=== PATIENT | male | born 1945 | race Caucasian/White ===

== ENCOUNTER 2016-10-14 19:24 | Emergency (ER) | payer OTHER ==
[~2016-10-14] VITALS: Ht 175.3 cm; Wt 83.1 kg
[2016-10-14 19:25] VITALS: TEMP 36.9; Ht 175.3 cm; Wt 83.1 kg
--- NOTE | 2016-10-14 20:26 | EMERGENCY ROOM VISIT NOTE ---
ED Visit Note First contact with patient: 20:06 The patient was initially to be seen by Damari Rodrigues PA-C but refused to see a PA and requested M.D. Please see the following note.
[2016-10-14] MEDS ORDERED: CEFTRIAXONE SOD INJ 1 GM ADDVIAL IV STA (21:14)
[2016-10-14 21:57] LABS: BASO % 0.4 %; BASO ABS # 0.03 K/uL (0-0.2); COMPLETE YES; EOS % 2.1 %; HEMATOCRIT 41.3 % (42-52); IG% 0.1 %; LYMPH % 23.9 %; LYMPH ABS # 1.79 K/uL (1.2-3.4); MEAN CELL VOLUME 91.6 fL (80-100); MEAN CORPUSCULAR HEMOGLOBIN 32.6 pg (25-34); MEAN CORPUSCULAR HGB CONC 35.6 g/dl (32-36); MEAN PLATELET VOLUME 10.4 fL (7.4-10.4); MONO % 11.8 %; NEUT % 61.7 %; PLATELET COUNT 193 K/uL (130-400); RED BLOOD COUNT 4.51 M/uL (4.7-6.1); WHITE BLOOD COUNT 7.48 K/uL (4.8-10.8)
[2016-10-14 22:16] LABS: BUN/CREATININE RATIO 15.8 (10-20); CALCIUM 9.1 mg/dl (8.5-10.1); CREATININE 1.1 mg/dl (0.60-1.40); POTASSIUM 3.8 mmol/L (3.5-5.1)
[2016-10-15] MEDS ORDERED: CEFD300C2 PO (00:45)
[2016-10-15 01:11] VITALS: BP 191/106; PULSE 78; O2SAT 99
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
--- NOTE | 2016-10-15 06:36 | DIAGNOSTIC IMAGING REPORT ---
BILATERAL LOWER EXTREMITY VENOUS DOPPLER HISTORY: Acute right lower extremity swelling. COMPARISON STUDY: None. FINDINGS: There is normal compressibility, flow, and augmentation within the right lower extremity deep venous system. There is limited evaluation of the calf veins secondary to soft tissue swelling. Incidental note is made of a Whitlock's cyst, 2.6 x 5.6 x 1.7 cm which is mildly complex. IMPRESSION: 1. No sonographic evidence of deep venous thrombosis. 2. Mildly complex cystic structure of the right popliteal fossa is seen measuring up to 5.6 cm suggesting Whitlock's cyst. Electronically signed by: Gerhard Osman M.D. 10/15/2016 6:34 AM Dictated Date/Time: 10/15/2016 6:32 AM
[2016-10-20] MEDS ORDERED: DXY100 PO (11:53)
== END 2016-10-15 01:13 | disposition home or self-care (01) ==
LOC: C.EDB 19:26 → C.EDC 10-15 01:13
DX: L03.115 Cellulitis of right lower limb (principal); M71.21 Synovial cyst of popliteal space [Baker], right knee; Z89.612 Acquired absence of left leg above knee; Z87.891 Personal history of nicotine dependence

== ENCOUNTER 2016-10-15 18:56 | Inpatient (IN) | payer OTHER ==
[~2016-10-15] VITALS: Ht 175.3 cm; Wt 83.1 kg
[~2016-10-15 18:56] MED LIST: CEFD300C2 PO
[2016-10-15] MEDS ORDERED: SODIUM CHLORIDE 0.9% 1000ML 1,000 ML IV STA (19:31)
[2016-10-15 20:14] LABS: BASO % 0.6 %; BASO ABS # 0.04 K/uL (0-0.2); COMPLETE YES; EOS % 2.4 %; HEMATOCRIT 43.9 % (42-52); IG% 0.3 %; LYMPH % 23.4 %; LYMPH ABS # 1.68 K/uL (1.2-3.4); MEAN CORPUSCULAR HEMOGLOBIN 32.3 pg (25-34); MEAN CORPUSCULAR HGB CONC 35.1 g/dl (32-36); MEAN PLATELET VOLUME 10.6 fL (7.4-10.4); MONO % 11.6 %; NEUT % 61.7 %; PLATELET COUNT 188 K/uL (130-400); RED BLOOD COUNT 4.77 M/uL (4.7-6.1); WHITE BLOOD COUNT 7.18 K/uL (4.8-10.8)
[2016-10-15] MEDS ORDERED: CEFTRIAXONE SOD INJ 1 GM ADDVIAL IV STA (20:28)
[2016-10-15 20:36] LABS: BUN/CREATININE RATIO 18.4 (10-20); CALCIUM 9.2 mg/dl (8.5-10.1); CREATININE 0.8 mg/dl (0.60-1.40); POTASSIUM 3.7 mmol/L (3.5-5.1)
[2016-10-15] MEDS ORDERED: DOXYCYCLINE IV 100 MG in DEXTROSE 5% 100ML 100 ML IV STA (21:15)
[2016-10-15 21:35] LABS: MAGNESIUM 2.2 mg/dl (1.8-2.4)
--- NOTE | 2016-10-15 21:48 | DIAGNOSTIC IMAGING REPORT ---
ULTRASOUND RIGHT VENOUS DOPP LOWER EXT UNILAT CLINICAL HISTORY: Worsening right leg edema COMPARISON STUDY: A 3987 FINDINGS: Real-time and color flow Doppler imaging were performed. Flow was seen within the femoral, popliteal and calf veins with no intraluminal thrombus demonstrated. The saphenous vein is patent. There is a persistent complex right popliteal cyst measuring 28 x 59 x 15 mm. IMPRESSION: 1. No evidence of right lower extremity DVT 2. Persistent right popliteal cyst Electronically signed by: Rishi Hughes M.D. 10/15/2016 9:47 PM Dictated Date/Time: 10/15/2016 9:46 PM
[2016-10-15] MEDS ORDERED: LORAZEPAM 0.5 MG TAB PO PRN (22:00)
[2016-10-15] MEDS ORDERED: TRAMADOL HCL 50 MG TAB PO PRN (22:00)
[2016-10-15] MEDS ORDERED: LORAZEPAM 2 MG/ML 1 ML VIAL IV PRN (22:00)
[2016-10-15] MEDS ORDERED: IBUPROFEN 200 MG TAB PO PRN (22:00)
[2016-10-15] MEDS ORDERED: ONDANSETRON INJ 2 MG/ML 2 ML VIAL IV PRN (22:00)
[2016-10-15] MEDS ORDERED: ACETAMINOPHEN 325 MG TAB PO PRN (22:00)
[2016-10-15] MEDS ORDERED: MoRPHine SULFATE 4 MG/ML 1 ML CARP\\VIAL IV PRN (22:00)
[2016-10-15] MEDS ORDERED: KETOROLAC TROMETHAMINE 15 MG/ML VIAL IV. PRN (22:00)
--- NOTE | 2016-10-15 22:03 | EMERGENCY ROOM VISIT NOTE ---
History First contact with patient: 19:09 Chief Complaint: WOUND RECHECK Stated Complaint: RECHECK FROM ER VISIT 10/14/16 Nursing Triage Summary: Patient was seen in ED last night for right leg swelling and redness, marker line placed on reddened area, redness has spread beyond marker line. Patient notes that he believes the swelling is worse. History of Present Illness The patient is a 71 year old male who presents to the Emergency Room via private vehicle accompanied by daughter with complaints of "recheck ankle. The patient states that he was seen here yesterday for cellulitis of his right lower leg. He states that he had a dose of Rocephin at the time, and was sent home with Omnicef. He has had one dose. He notes that the redness has worsened. He denies any diabetes, immunocompromise a conditions, and denies a tetanus shot. He denies any fevers or chills. Review of Systems A complete 10-point Review of Systems was discussed with the patient, with pertinent positives and negatives listed in the History of Present Illness. All remaining Review of Systems questions can be considered negative unless otherwise specified. Past Medical/Surgical History Surgical Problems: (1) Hx of AKA (above knee amputation) Family History Patient reports no known family medical history. Social History Smoking Status: Never Smoker Occupation Status: retired Current/Historical Medications Scheduled Cefdinir (Omnicef), 300 MG PO Q12H Physical Exam Vital Signs Date Time Temp Pulse Resp B/P (MAP) Pulse Ox O2 Delivery O2 Flow Rate FiO2 10/15/16 20:26 76 17 95 10/15/16 20:13 82 10/15/16 20:06 98 Room Air 10/15/16 20:04 159/84 10/15/16 19:00 36.8 89 16 178/83 94 Room Air Physical Exam VITAL SIGNS - Vital signs and nursing notes were reviewed. Afebrile, hypertensive 178/83, nontoxic tachycardic and is saturating on room air 94%. GENERAL -71-year-old male appearing his stated age who is in no acute distress. Communicates well with provider and answers questions appropriately. SKIN - Without rashes. HEAD - NC/AT. EYES - Sclera anicteric. EARS - No deformities of external structures noted on gross examination bilaterally. NOSE - Midline and without cyanosis. No epistaxis or purulent drainage noted. Septum midline without deviation or septal hematoma noted. MOUTH/OROPHARYNX - Without perioral cyanosis. NECK - Neck with FROM. LUNGS - Chest wall symmetric without accessory muscle use, intercostals retractions, or central cyanosis. Normal vesicular breath sounds CTA B/L. No wheezes, rales, or rhonchi appreciated. CARDIAC - RRR with S1/S2. No murmur, rubs, or gallops appreciated. EXTREMITIES - No clubbing or peripheral cyanosis. No pretibial edema present. Right lower extremity with erythema from the right knee inferiorly, significantly progressed from yesterday. +5/5 strength noted in UE/LE bilaterally. Medical Decision & Procedures ER Provider Diagnostic Interpretation: ULTRASOUND RIGHT VENOUS DOPP LOWER EXT UNILAT CLINICAL HISTORY: Worsening right leg edema COMPARISON STUDY: A 2816 FINDINGS: Real-time and color flow Doppler imaging were performed. Flow was seen within the femoral, popliteal and calf veins with no intraluminal thrombus demonstrated. The saphenous vein is patent. There is a persistent complex right popliteal cyst measuring 28 x 59 x 15 mm. IMPRESSION: 1. No evidence of right lower extremity DVT 2. Persistent right popliteal cyst Electronically signed by: Rishi Hughes M.D. 10/15/2016 9:47 PM Dictated Date/Time: 10/15/2016 9:46 PM Laboratory Results 10/15/16 20:00 Red Blood Count 4.77, Mean Corpuscular Volume 92.0, Mean Corpuscular Hemoglobin 32.3, Mean Corpuscular Hemoglobin Concent 35.1, Mean Platelet Volume 10.6, Neutrophils (%) (Auto) 61.7, Lymphocytes (%) (Auto) 23.4, Monocytes (%) (Auto) 11.6, Eosinophils (%) (Auto) 2.4, Basophils (%) (Auto) 0.6, Neutrophils # (Auto ) 4.44, Lymphocytes # (Auto) 1.68, Monocytes # (Auto) 0.83, Eosinophils # (Auto ) 0.17, Basophils # (Auto) 0.04 10/15/16 20:00 Test 10/15/16 20:00 White Blood Count 7.18 K/uL (4.8-10.8) Red Blood Count 4.77 M/uL (4.7-6.1) Hemoglobin 15.4 g/dL (14.0-18.0) Hematocrit 43.9 % (42-52) Mean Corpuscular Volume 92.0 fL (80-100) Mean Corpuscular Hemoglobin 32.3 pg (25-34) Mean Corpuscular Hemoglobin Concent 35.1 g/dl (32-36) Platelet Count 188 K/uL (130-400) Mean Platelet Volume 10.6 fL (7.4-10.4) Neutrophils (%) (Auto) 61.7 % Lymphocytes (%) (Auto) 23.4 % Monocytes (%) (Auto) 11.6 % Eosinophils (%) (Auto) 2.4 % Basophils (%) (Auto) 0.6 % Neutrophils # (Auto) 4.44 K/uL (1.4-6.5) Lymphocytes # (Auto) 1.68 K/uL (1.2-3.4) Monocytes # (Auto) 0.83 K/uL (0.11-0.59) Eosinophils # (Auto) 0.17 K/uL (0-0.5) Basophils # (Auto) 0.04 K/uL (0-0.2) RDW Standard Deviation 45.9 fL (36.4-46.3) RDW Coefficient of Variation 13.7 % (11.5-14.5) Immature Granulocyte % (Auto) 0.3 % Immature Granulocyte # (Auto) 0.02 K/uL (0.00-0.02) Anion Gap 4.0 mmol/L (3-11) Est Creatinine Clear Calc Drug Dose 82.3 ml/min Estimated GFR () 102.7 Estimated GFR (Non- 88.6 BUN/Creatinine Ratio 18.4 (10-20) Calcium Level 9.2 mg/dl (8.5-10.1) Magnesium Level 2.2 mg/dl (1.8-2.4) Total Bilirubin 1.2 mg/dl (0.2-1) Direct Bilirubin 0.3 mg/dl (0-0.2) Aspartate Amino Transf (AST/SGOT) 17 U/L (15-37) Alanine Aminotransferase (ALT/SGPT) 21 U/L (12-78) Alkaline Phosphatase 60 U/L (45-117) Total Protein 7.7 gm/dl (6.4-8.2) Albumin 3.8 gm/dl (3.4-5.0) Medications Administered Medications (Trade) Dose Ordered Sig/Wil Route Start Time Stop Time Status Last Admin Dose Admin Sodium Chloride 1,000 ml @ 999 mls/hr Q1H1M STAT IV 10/15/16 19:31 10/15/16 20:31 DC 10/15/16 19:31 999 MLS/HR Ceftriaxone Sodium (Rocephin Inj) 1 gm NOW STAT IV 10/15/16 20:28 10/15/16 20:29 DC 10/15/16 20:58 1 GM Medical Decision Patient was seen and evaluated as above. After obtaining a thorough history and physical examination IV access is initiated, and the above workup was performed. The patient presents to us today with worsening cellulitis. Due to the rapid correction, I do believe that inpatient management is warranted. CBC reveals no leukocytosis or anemia. CMP reveals bilirubin high at 1.2, creatinine appropriate at 0.8. DVT study negative. 1 g of Rocephin was ordered. 1 L of normal saline was ordered. Case was discussed with the attending physician, who also personally evaluated the patient, as well as the hospitalist. Please refer to further documentation regarding his stay. It is important to note that the patient declined tetanus immunization. In evaluation and treatment this patient the following differential diagnoses were entertained: Cellulitis, sepsis, among others. Impression Primary Impression: Cellulitis Departure Information Dispostion Other Condition FAIR Referrals Curtis Chadwick M.D. (PCP) Patient Instructions My [facility]
--- NOTE | 2016-10-15 22:36 | DIAGNOSTIC IMAGING REPORT ---
RIGHT TIBIA/FIBULA 2 VIEWS ROUTINE CLINICAL HISTORY: Right leg pain COMPARISON: None. DISCUSSION: No acute fractures are visualized. Degenerative changes are present within the knee. There is chondrocalcinosis. There is mild diffuse soft tissue swelling. IMPRESSION: 1. No acute fractures 2. Degenerative changes involving the knee with chondrocalcinosis Electronically signed by: Rishi Hughes M.D. 10/15/2016 10:35 PM Dictated Date/Time: 10/15/2016 10:34 PM
[2016-10-15] MEDS ORDERED: LORAZEPAM INJ 0.5 MG in SYRINGE 0.75 ML IV PRN (22:45)
[2016-10-15 22:52] LABS: PARTIAL THROMBOPLASTIN RATIO 1.1; PROTHROMBIN TIME (PATIENT) 10.9 SECONDS (9.0-12.0)
[2016-10-15 22:53] VITALS: O2SAT 97; Ht 175.3 cm; Wt 83.1 kg
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
[2016-10-16 06:39] LABS: BASO % 0.4 %; BASO ABS # 0.03 K/uL (0-0.2); COMPLETE YES; EOS % 3.3 %; IG% 0.3 %; LYMPH % 30.3 %; LYMPH ABS # 2.04 K/uL (1.2-3.4); MEAN CELL VOLUME 92.6 fL (80-100); MEAN CORPUSCULAR HEMOGLOBIN 32.3 pg (25-34); MEAN CORPUSCULAR HGB CONC 34.9 g/dl (32-36); MEAN PLATELET VOLUME 10.4 fL (7.4-10.4); MONO % 11.7 %; PLATELET COUNT 173 K/uL (130-400); RED BLOOD COUNT 4.21 M/uL (4.7-6.1); WHITE BLOOD COUNT 6.74 K/uL (4.8-10.8)
[2016-10-16 08:28] VITALS: BP 170/75; PULSE 68; TEMP 36.9; O2SAT 95
[2016-10-16 08:30] VITALS: O2SAT 95
[2016-10-16] MEDS: ENOXAPARIN 40 MG/0.4 ML SYR SQ SCH (09:00)
[2016-10-16] MEDS: DOXYCYCLINE IV 100 MG in DEXTROSE 5% 100ML 100 ML IV SCH ×2 (11:32→22:41)
[2016-10-16 15:17] VITALS: BP 176/80; PULSE 71; TEMP 36.5; O2SAT 98
--- NOTE | 2016-10-16 15:32 | Progress Note ---
Internal Med Progress Note Date of Service: Oct 16, 2016. Provider Documentation: SUBJECTIVE: Seen and examined at bedside. States RLE swelling and redness is improving Denies any chest pain, SOB Offers no other complaints OBJECTIVE: Vital Signs-as noted below Physical Exam: General Appearance:Moderately built and nourished, no apparent distress Head: normocephalic, Atraumatic Eyes: normal inspection, EOMI, PERRL Neck: supple, Trachea midline Respiratory/Chest: Normal breath sounds, CTA Cardiovascular: S1, S2, No murmur Abdomen/GI:Soft, Non tender, Bowel sounds present Extremities/Musculoskelatal:Left AKA, RLE swelling, erythema, mild tender Neurologic/Psych:grossly no focal neurological deficits Skin: normal color, warm Lab data as noted below. ASSESSMENT & PLAN: RLE Cellulitis: Secondary to trauma No signs of sepsis Venous Doppler: No DVT X ray: . No acute fractures Continue IV Doxycycline Blood cultures pending Hypertension: Elevated, asymptomatic Not on maintenance medications prefers no medications for HTN DVT Px: Lovenox SQ: refusing Code Status: Full code Disposition: Plan to discharge home when medically stable Vital Signs: Date Time Temp Pulse Resp B/P (MAP) Pulse Ox O2 Delivery O2 Flow Rate FiO2 10/16/16 15:17 36.5 71 20 176/80 (112) 98 Room Air 10/16/16 08:30 95 Room Air 10/16/16 08:28 36.9 68 20 170/75 (106) 95 Room Air 10/15/16 22:53 97 Room Air 10/15/16 22:00 82 20 97 10/15/16 20:26 76 17 95 10/15/16 20:13 82 10/15/16 20:06 98 Room Air 10/15/16 20:04 159/84 10/15/16 19:00 36.8 89 16 178/83 94 Room Air Lab Results: Results Past 24 Hours Test 10/15/16 20:00 10/16/16 06:25 Range/Units White Blood Count 7.18 6.74 4.8-10.8 K/uL Red Blood Count 4.77 4.21 4.7-6.1 M/uL Hemoglobin 15.4 13.6 14.0-18.0 g/dL Hematocrit 43.9 39.0 42-52 % Mean Corpuscular Volume 92.0 92.6 80-100 fL Mean Corpuscular Hemoglobin 32.3 32.3 25-34 pg Mean Corpuscular Hemoglobin Concent 35.1 34.9 32-36 g/dl Platelet Count 188 173 130-400 K/uL Mean Platelet Volume 10.6 10.4 7.4-10.4 fL Neutrophils (%) (Auto) 61.7 54.0 % Lymphocytes (%) (Auto) 23.4 30.3 % Monocytes (%) (Auto) 11.6 11.7 % Eosinophils (%) (Auto) 2.4 3.3 % Basophils (%) (Auto) 0.6 0.4 % Neutrophils # (Auto) 4.44 3.64 1.4-6.5 K/uL Lymphocytes # (Auto) 1.68 2.04 1.2-3.4 K/uL Monocytes # (Auto) 0.83 0.79 0.11-0.59 K/uL Eosinophils # (Auto) 0.17 0.22 0-0.5 K/uL Basophils # (Auto) 0.04 0.03 0-0.2 K/uL RDW Standard Deviation 45.9 46.0 36.4-46.3 fL RDW Coefficient of Variation 13.7 13.6 11.5-14.5 % Immature Granulocyte % (Auto) 0.3 0.3 % Immature Granulocyte # (Auto) 0.02 0.02 0.00-0.02 K/uL Prothrombin Time 10.9 9.0-12.0 SECONDS Prothromb Time International Ratio 1.0 0.9-1.1 Activated Partial Thromboplast Time 29.6 21.0-31.0 SECONDS Partial Thromboplastin Ratio 1.1 Sodium Level 140 136-145 mmol/L Potassium Level 3.7 3.5-5.1 mmol/L Chloride Level 106 98-107 mmol/L Carbon Dioxide Level 30 21-32 mmol/L Anion Gap 4.0 3-11 mmol/L Blood Urea Nitrogen 15 7-18 mg/dl Creatinine 0.80 0.60-1.40 mg/dl Est Creatinine Clear Calc Drug Dose 82.3 ml/min Estimated GFR () 102.7 Estimated GFR (Non- 88.6 BUN/Creatinine Ratio 18.4 10-20 Random Glucose 121 70-99 mg/dl Calcium Level 9.2 8.5-10.1 mg/dl Magnesium Level 2.2 1.8-2.4 mg/dl Total Bilirubin 1.2 0.2-1 mg/dl Direct Bilirubin 0.3 0-0.2 mg/dl Aspartate Amino Transf (AST/SGOT) 17 15-37 U/L Alanine Aminotransferase (ALT/SGPT) 21 12-78 U/L Alkaline Phosphatase 60 45-117 U/L Total Protein 7.7 6.4-8.2 gm/dl Albumin 3.8 3.4-5.0 gm/dl Microbiology Results 10/15/16 Blood Culture, Received Pending 10/15/16 Blood Culture, Received Pending
[2016-10-16] MEDS ORDERED: HydrALAZINE 10 MG TAB PO PRN (15:45)
[2016-10-16] MEDS ORDERED: AMLODIPINE BESYLATE 5 MG TAB PO ONE (16:15)
[2016-10-16 23:19] VITALS: BP 164/73; PULSE 67; TEMP 36.7; O2SAT 95
[2016-10-17 07:25] LABS: BASO % 0.4 %; BASO ABS # 0.03 K/uL (0-0.2); COMPLETE YES; EOS % 3.6 %; HEMATOCRIT 39.2 % (42-52); IG% 0.3 %; LYMPH % 26.2 %; LYMPH ABS # 1.81 K/uL (1.2-3.4); MEAN CELL VOLUME 92.2 fL (80-100); MEAN CORPUSCULAR HEMOGLOBIN 32.5 pg (25-34); MEAN CORPUSCULAR HGB CONC 35.2 g/dl (32-36); MEAN PLATELET VOLUME 10.4 fL (7.4-10.4); MONO % 9.7 %; NEUT % 59.8 %; PLATELET COUNT 172 K/uL (130-400); RED BLOOD COUNT 4.25 M/uL (4.7-6.1); WHITE BLOOD COUNT 6.92 K/uL (4.8-10.8)
[2016-10-17] MEDS: ENOXAPARIN 40 MG/0.4 ML SYR SQ SCH (07:34)
[2016-10-17 07:57] VITALS: BP 163/79; PULSE 72; TEMP 36.1; O2SAT 96
[2016-10-17 07:59] LABS: BUN/CREATININE RATIO 23.4 (10-20); CALCIUM 9.2 mg/dl (8.5-10.1); CREATININE 0.74 mg/dl (0.60-1.40)
[2016-10-17] MEDS: DOXYCYCLINE IV 100 MG in DEXTROSE 5% 100ML 100 ML IV SCH ×2 (10:56→23:04)
[2016-10-17 11:40] VITALS: BP 173/89; PULSE 75; TEMP 36.8; O2SAT 96
--- NOTE | 2016-10-17 14:43 | Progress Note ---
Internal Med Progress Note Date of Service: Oct 17, 2016. Provider Documentation: SUBJECTIVE: Seen and examined at bedside. RLE swelling and redness is improving Denies any chest pain, SOB Offers no other complaints Family at bedside OBJECTIVE: Vital Signs-as noted below Physical Exam: General Appearance:Moderately built and nourished, no apparent distress Head: normocephalic, Atraumatic Eyes: normal inspection, EOMI, PERRL Neck: supple, Trachea midline Respiratory/Chest: Normal breath sounds, CTA Cardiovascular: S1, S2, No murmur Abdomen/GI:Soft, Non tender, Bowel sounds present Extremities/Musculoskelatal:Left AKA, RLE swelling, erythema, mild tender Neurologic/Psych:grossly no focal neurological deficits Skin: normal color, warm Lab data as noted below. ASSESSMENT & PLAN: RLE Cellulitis: Secondary to trauma No signs of sepsis Venous Doppler: No DVT X ray: . No acute fractures Continue IV Doxycycline Blood cultures: No growth to date Encourage leg elevation Hypertension: Elevated, asymptomatic Not on maintenance medications prefers no medications for HTN DVT Px: Lovenox SQ: refusing Code Status: Full code Disposition: Plan to discharge home when medically stable Vital Signs: Date Time Temp Pulse Resp B/P (MAP) Pulse Ox O2 Delivery O2 Flow Rate FiO2 10/17/16 11:40 36.8 75 18 173/89 (117) 96 Room Air 10/17/16 08:00 Room Air 10/17/16 07:57 36.1 72 20 163/79 (107) 96 Room Air 10/17/16 00:00 Room Air 10/16/16 23:19 36.7 67 18 164/73 (103) 95 Room Air 10/16/16 20:00 Room Air 10/16/16 16:00 Room Air 10/16/16 15:17 36.5 71 20 176/80 (112) 98 Room Air Lab Results: Results Past 24 Hours Test 10/17/16 07:04 Range/Units White Blood Count 6.92 4.8-10.8 K/uL Red Blood Count 4.25 4.7-6.1 M/uL Hemoglobin 13.8 14.0-18.0 g/dL Hematocrit 39.2 42-52 % Mean Corpuscular Volume 92.2 80-100 fL Mean Corpuscular Hemoglobin 32.5 25-34 pg Mean Corpuscular Hemoglobin Concent 35.2 32-36 g/dl Platelet Count 172 130-400 K/uL Mean Platelet Volume 10.4 7.4-10.4 fL Neutrophils (%) (Auto) 59.8 % Lymphocytes (%) (Auto) 26.2 % Monocytes (%) (Auto) 9.7 % Eosinophils (%) (Auto) 3.6 % Basophils (%) (Auto) 0.4 % Neutrophils # (Auto) 4.14 1.4-6.5 K/uL Lymphocytes # (Auto) 1.81 1.2-3.4 K/uL Monocytes # (Auto) 0.67 0.11-0.59 K/uL Eosinophils # (Auto) 0.25 0-0.5 K/uL Basophils # (Auto) 0.03 0-0.2 K/uL RDW Standard Deviation 46.2 36.4-46.3 fL RDW Coefficient of Variation 13.7 11.5-14.5 % Immature Granulocyte % (Auto) 0.3 % Immature Granulocyte # (Auto) 0.02 0.00-0.02 K/uL Sodium Level 140 136-145 mmol/L Potassium Level 4.0 3.5-5.1 mmol/L Chloride Level 109 98-107 mmol/L Carbon Dioxide Level 26 21-32 mmol/L Anion Gap 5.0 3-11 mmol/L Blood Urea Nitrogen 17 7-18 mg/dl Creatinine 0.74 0.60-1.40 mg/dl Est Creatinine Clear Calc Drug Dose 88.9 ml/min Estimated GFR () 106.1 Estimated GFR (Non- 91.5 BUN/Creatinine Ratio 23.4 10-20 Random Glucose 88 70-99 mg/dl Calcium Level 9.2 8.5-10.1 mg/dl
[2016-10-17 15:10] VITALS: BP 152/72; PULSE 69; TEMP 37.1; O2SAT 95
[2016-10-17 20:00] VITALS: O2SAT 95
[2016-10-17 23:25] VITALS: BP 148/72; PULSE 65; TEMP 36.5; O2SAT 96
[2016-10-18] VITALS: O2SAT 95
[2016-10-18] MEDS: ENOXAPARIN 40 MG/0.4 ML SYR SQ SCH (07:04)
[2016-10-18 07:23] VITALS: BP 190/79; PULSE 63; TEMP 36.9; O2SAT 97
[2016-10-18 08:34] LABS: HEMATOCRIT 41.3 % (42-52); MEAN CELL VOLUME 92.4 fL (80-100); MEAN CORPUSCULAR HEMOGLOBIN 33.3 pg (25-34); MEAN CORPUSCULAR HGB CONC 36.1 g/dl (32-36); MEAN PLATELET VOLUME 10.4 fL (7.4-10.4); PLATELET COUNT 189 K/uL (130-400); RED BLOOD COUNT 4.47 M/uL (4.7-6.1); WHITE BLOOD COUNT 7.06 K/uL (4.8-10.8)
[2016-10-18 09:06] LABS: CREATININE 0.7 mg/dl (0.60-1.40)
--- NOTE | 2016-10-18 11:35 | Progress Note ---
Internal Med Progress Note Date of Service: Oct 18, 2016. Provider Documentation: SUBJECTIVE: Seen and examined at bedside. RLE pain is better RLE swelling/redness improving Denies any chest pain, SOB Offers no other complaints Family at bedside BP elevated this morning but refuses to take meds OBJECTIVE: Vital Signs-as noted below Physical Exam: General Appearance:Moderately built and nourished, no apparent distress Head: normocephalic, Atraumatic Eyes: normal inspection, EOMI, PERRL Neck: supple, Trachea midline Respiratory/Chest: Normal breath sounds, CTA Cardiovascular: S1, S2, No murmur Abdomen/GI:Soft, Non tender, Bowel sounds present Extremities/Musculoskelatal:Left AKA, RLE swelling, erythema, mild tender Neurologic/Psych:grossly no focal neurological deficits Skin: normal color, warm Lab data as noted below. ASSESSMENT & PLAN: RLE Cellulitis: Secondary to trauma No signs of sepsis Venous Doppler: No DVT X ray:No acute fractures Continue IV Doxycycline Blood cultures: No growth to date Encourage leg elevation Prominent swelling on Right carter: check USD to r/o hematoma/abscess Hypertension: Elevated, asymptomatic Not on maintenance medications prefers no medications for HTN DVT Px: Lovenox SQ: refusing Code Status: Full code Disposition: Plan to discharge home when medically stable Follow up with Primary Care on Oct 24, 2016 at 1:00pm Vital Signs: Date Time Temp Pulse Resp B/P (MAP) Pulse Ox O2 Delivery O2 Flow Rate FiO2 10/18/16 16:14 36.9 67 20 168/77 (107) 93 Room Air 10/18/16 16:00 Room Air 10/18/16 13:05 77 192/89 (123) 10/18/16 08:00 Room Air 10/18/16 07:23 36.9 63 20 190/79 (116) 97 Room Air 10/18/16 00:00 95 Room Air 10/17/16 23:25 36.5 65 20 148/72 (97) 96 Room Air 10/17/16 20:00 95 Room Air Lab Results: Results Past 24 Hours Test 10/18/16 08:22 10/18/16 16:09 Range/Units White Blood Count 7.06 4.8-10.8 K/uL Red Blood Count 4.47 4.7-6.1 M/uL Hemoglobin 14.9 14.0-18.0 g/dL Hematocrit 41.3 42-52 % Mean Corpuscular Volume 92.4 80-100 fL Mean Corpuscular Hemoglobin 33.3 25-34 pg Mean Corpuscular Hemoglobin Concent 36.1 32-36 g/dl RDW Standard Deviation 46.2 36.4-46.3 fL RDW Coefficient of Variation 13.7 11.5-14.5 % Platelet Count 189 130-400 K/uL Mean Platelet Volume 10.4 7.4-10.4 fL Creatinine 0.70 0.60-1.40 mg/dl Est Creatinine Clear Calc Drug Dose 94.0 ml/min Estimated GFR () 108.5 Estimated GFR (Non- 93.6
[2016-10-18] MEDS: DOXYCYCLINE IV 100 MG in DEXTROSE 5% 100ML 100 ML IV SCH ×2 (12:02→23:10)
[2016-10-18 13:05] VITALS: BP 192/89; PULSE 77
--- NOTE | 2016-10-18 15:44 | DIAGNOSTIC IMAGING REPORT ---
RIGHT EXTREMITY NONVASCULAR LIMITED HISTORY: 71 years-old Male leg R/O Abcess/Hematoma Right COMPARISON: Right tibia and fibula radiographs 10/15/2016 TECHNIQUE: Multiple real-time sonographic images of the posterior medial right calf were obtained assessing grayscale appearance and color flow. FINDINGS: Within the area of interest there is a multiloculated complex hypoechoic ovoid circumscribed collection in the region of the medial distal calf which appears be present within the subcutaneous or intramuscular tissues overall measuring 5.0 x 1.3 x 2.9 cm with internal echogenic septations. This is adjacent to the posterior cortex of what appears to be the tibia. No internal vascularity identified. The collection does not appear to be specifically compressible. Mild edema seen within the adjacent soft tissues. IMPRESSION: Complex hypoechoic collection with internal septations involves the distal calf and appears to be intramuscular measuring up to 4.9 x 1.3 x 2.9 cm suggesting hematoma. Abscess could have a similar appearance. The above report was generated using voice recognition software. It may contain grammatical, syntax or spelling errors. Electronically signed by: Gerhard Osman M.D. 10/18/2016 3:42 PM Dictated Date/Time: 10/18/2016 3:40 PM
[2016-10-18 16:14] VITALS: BP 168/77; PULSE 67; TEMP 36.9; O2SAT 93
[2016-10-18 20:00] VITALS: O2SAT 95
[2016-10-18 23:31] VITALS: BP 167/73; PULSE 64; TEMP 37.1; O2SAT 94
[2016-10-19] VITALS: O2SAT 95
[2016-10-19] MEDS: ENOXAPARIN 40 MG/0.4 ML SYR SQ SCH (07:11)
[2016-10-19 08:41] VITALS: BP 193/91; PULSE 61; TEMP 36.3; O2SAT 98
--- NOTE | 2016-10-19 08:58 | Orthopedic Progress Note ---
Orthopedic Progress Note Date of Service Oct 19, 2016. Subjective Reports: feeling well, Denies: chest pain, SOB, nausea / vomiting, light headedness, calf pain Additional Notes: PAIN IS IMPROVING. STATES ON ADMISSION IT WAS A 9/10 WITH WEIGHT BEARING AND NOW IT'S A 3/4. ULTRASOUND SHOWS SMALL FLUID COLLECTION, LIKELY HEMATOMA BUT COULD BE ABSCESS. Objective calves soft nontender, N/V intact, capillary refill less than 2 sec., A&O x3 STILL WITH MODERATE ERYTHEMA. HAS NOT EXCEEDED THE ORIGINAL OUTLINE ON ADMISSION. OVERALL SWELLING SEEMS IMPROVED. Date Time Temp Pulse Resp B/P (MAP) Pulse Ox O2 Delivery O2 Flow Rate FiO2 10/19/16 08:41 36.3 61 20 193/91 (125) 98 10/19/16 00:00 95 Room Air 10/18/16 23:31 37.1 64 18 167/73 (104) 94 Room Air 10/18/16 20:00 95 Room Air 10/18/16 16:14 36.9 67 20 168/77 (107) 93 Room Air 10/18/16 16:00 Room Air 10/18/16 13:05 77 192/89 (123) Additional Notes: Item Value Date Time Erythrocyte Sedimentation Rate 13 mm/hr 10/18/16 1609 C-Reactive Protein 1.30 mg/dl H 10/18/16 1609 Assessment & Plan Assessment: RLE CELLULITIS, HEMATOMA SP TRAUMA Plan: CONTINUE IV ABX FOR CELLULITIS. CONTINUE ELEVATION WILL HAVE DR. GRAHAM SEE AND EVALUATE TODAY FULL CONSULT WAS DICTATED 10/18 BUT NOT SHOWING UP IN THE CHART YET.
[2016-10-19] MEDS: DOXYCYCLINE IV 100 MG in DEXTROSE 5% 100ML 100 ML IV SCH ×2 (11:39→22:34)
--- NOTE | 2016-10-19 14:13 | Progress Note ---
Internal Med Progress Note Date of Service: Oct 19, 2016. Provider Documentation: SUBJECTIVE: Seen and examined at bedside. RLE pain is improving RLE swelling/redness much improved Denies any chest pain, SOB Offers no other complaints BP elevated but asymptomatic OBJECTIVE: Vital Signs-as noted below Physical Exam: General Appearance:Moderately built and nourished, no apparent distress Head: normocephalic, Atraumatic Eyes: normal inspection, EOMI, PERRL Neck: supple, Trachea midline Respiratory/Chest: Normal breath sounds, CTA Cardiovascular: S1, S2, No murmur Abdomen/GI:Soft, Non tender, Bowel sounds present Extremities/Musculoskelatal:Left AKA, RLE swelling, erythema, mild tender Neurologic/Psych:grossly no focal neurological deficits Skin: normal color, warm Lab data as noted below. ASSESSMENT & PLAN: RLE Cellulitis: Secondary to trauma No signs of sepsis Venous Doppler: No DVT X ray:No acute fractures Continue IV Doxycycline Blood cultures: No growth to date Encourage leg elevation Leg USD:findings suggestive of hematoma, ? abscess appreciate orthopedics input Hypertension: Elevated, asymptomatic Not on maintenance medications prefers no medications for HTN DVT Px: Lovenox SQ: refusing Code Status: Full code Disposition: Plan to discharge home when medically stable Follow up with Primary Care on Oct 24, 2016 at 1:00pm Complete the antibiotic course as prescribed Seek immediate medical attention if your symptoms reoccur or worsen Vital Signs: Date Time Temp Pulse Resp B/P (MAP) Pulse Ox O2 Delivery O2 Flow Rate FiO2 10/19/16 08:41 36.3 61 20 193/91 (125) 98 10/19/16 08:00 Room Air 10/19/16 00:00 95 Room Air 10/18/16 23:31 37.1 64 18 167/73 (104) 94 Room Air 10/18/16 20:00 95 Room Air 10/18/16 16:14 36.9 67 20 168/77 (107) 93 Room Air 10/18/16 16:00 Room Air Lab Results: Results Past 24 Hours Test 10/18/16 16:09 Range/Units Erythrocyte Sedimentation Rate 13 0-14 mm/hr C-Reactive Protein 1.30 0-0.29 mg/dl
[2016-10-19 15:03] VITALS: BP 195/87; PULSE 69; TEMP 37; O2SAT 96
--- NOTE | 2016-10-19 16:14 | PROGRESS NOTE ---
DATE: 10/19/2016 SUBJECTIVE: Devante was seen at the bedside today. He notes overall improvement over the past 24 hours. He denies any fever or chills. OBJECTIVE: Right lower extremity examination does show a fluctuant area over the anterior aspect of the carter. I do not detect any overlying erythema and is minimally tender to palpation. He has no streaking erythema and he has supple motion of the toes. Calves are soft. ASSESSMENT: Right lower extremity cellulitis, likely hematoma. PLAN: At this point in time, clinically, he exhibits improvement, I do not see any significant evidence of abscess that did require surgical treatment. I would not anticipate any further surgical treatment. We will continue to follow currently. He will continue ice and elevation.
[2016-10-19 23:01] VITALS: BP 175/79; PULSE 65; TEMP 37.1; O2SAT 94
[2016-10-20 06:46] LABS: BASO % 0.5 %; BASO ABS # 0.03 K/uL (0-0.2); COMPLETE YES; EOS % 4.2 %; HEMATOCRIT 42.1 % (42-52); IG% 0.3 %; LYMPH % 27.7 %; MEAN CELL VOLUME 94.6 fL (80-100); MEAN CORPUSCULAR HEMOGLOBIN 31.2 pg (25-34); NEUT % 58.3 %; PLATELET COUNT 189 K/uL (130-400); RED BLOOD COUNT 4.45 M/uL (4.7-6.1); WHITE BLOOD COUNT 6.13 K/uL (4.8-10.8)
[2016-10-20] MEDS: ENOXAPARIN 40 MG/0.4 ML SYR SQ SCH (07:00)
[2016-10-20 08:16] VITALS: BP 192/91; PULSE 68; TEMP 36.4; O2SAT 95
--- NOTE | 2016-10-20 09:08 | Orthopedic Progress Note ---
Orthopedic Progress Note Date of Service Oct 20, 2016. Subjective Reports: feeling well, Denies: chest pain, SOB, nausea / vomiting, light headedness, calf pain Additional Notes: CONTINUES TO IMPROVE. PAIN EVEN LESS TODAY.RATES 1/10 WHEN AMBULATING. Objective calves soft nontender, N/V intact, capillary refill less than 2 sec., A&O x3 MODERATE ERYTHEMA. SMALL AREA OF FLUCTUANCE OVER THE TIBIA, SEEMS TO BE IMPROVING. Date Time Temp Pulse Resp B/P (MAP) Pulse Ox O2 Delivery O2 Flow Rate FiO2 10/20/16 08:16 36.4 68 18 192/91 (124) 95 Room Air 10/20/16 00:10 Room Air 10/19/16 23:01 37.1 65 16 175/79 (111) 94 Room Air 10/19/16 20:30 Room Air 10/19/16 16:00 Room Air 10/19/16 15:03 37.0 69 18 195/87 (123) 96 Room Air Laboratory Results 24 Hours: Test 10/20/16 05:55 White Blood Count 6.13 K/uL Red Blood Count 4.45 M/uL Hemoglobin 13.9 g/dL Hematocrit 42.1 % Mean Corpuscular Volume 94.6 fL Mean Corpuscular Hemoglobin 31.2 pg Mean Corpuscular Hemoglobin Concent 33.0 g/dl Platelet Count 189 K/uL Mean Platelet Volume 11.0 fL Neutrophils (%) (Auto) 58.3 % Lymphocytes (%) (Auto) 27.7 % Monocytes (%) (Auto) 9.0 % Eosinophils (%) (Auto) 4.2 % Basophils (%) (Auto) 0.5 % Neutrophils # (Auto) 3.57 K/uL Lymphocytes # (Auto) 1.70 K/uL Monocytes # (Auto) 0.55 K/uL Eosinophils # (Auto) 0.26 K/uL Basophils # (Auto) 0.03 K/uL Assessment & Plan Assessment: RLE CELLULITIS, HEMATOMA SP TRAUMA Plan: CONTINUE IV ABX FOR CELLULITIS. CURRENTLY ON DOXY, NOT SEEING MUCH IMPROVEMENT IN CELLULITIS SINCE INITIAL EVAL. MAY CONSIDER VANCO? CONTINUE ELEVATION WILL HAVE DR. GRAHAM SEE AND EVALUATE TODAY ENCOURAGE ELEVATION OF LLE. FULL CONSULT WAS DICTATED 10/18 BUT NOT SHOWING UP IN THE CHART YET.
[2016-10-20] MEDS: DOXYCYCLINE IV 100 MG in DEXTROSE 5% 100ML 100 ML IV SCH (11:02)
--- NOTE | 2016-10-20 11:51 | Progress Note ---
Internal Med Progress Note Date of Service: Oct 20, 2016. Provider Documentation: SUBJECTIVE: Seen and examined at bedside. RLE pain/ redness much improved RLE hematoma about the same Denies any chest pain, SOB Offers no other complaints BP elevated but asymptomatic OBJECTIVE: Vital Signs-as noted below Physical Exam: General Appearance:Moderately built and nourished, no apparent distress Head: normocephalic, Atraumatic Eyes: normal inspection, EOMI, PERRL Neck: supple, Trachea midline Respiratory/Chest: Normal breath sounds, CTA Cardiovascular: S1, S2, No murmur Abdomen/GI:Soft, Non tender, Bowel sounds present Extremities/Musculoskelatal:Left AKA, RLE swelling, erythema, mild tender Neurologic/Psych:grossly no focal neurological deficits Skin: normal color, warm Lab data as noted below. ASSESSMENT & PLAN: RLE Cellulitis: Secondary to trauma No signs of sepsis Venous Doppler: No DVT X ray:No acute fractures Continue IV Doxycyclin Day#5 Blood cultures: No growth to date Encourage leg elevation Leg USD:findings suggestive of hematoma appreciate orthopedics input: Discussed today: No plan for for any intervention/ Follow up Hypertension: Elevated, asymptomatic Not on maintenance medications prefers no medications for HTN DVT Px: Lovenox SQ: refusing Code Status: Full code Disposition: Plan to discharge home today Follow up with Primary Care on Oct 24, 2016 at 1:00pm Complete the antibiotic course as prescribed Seek immediate medical attention if your symptoms reoccur or worsen Vital Signs: Date Time Temp Pulse Resp B/P (MAP) Pulse Ox O2 Delivery O2 Flow Rate FiO2 10/20/16 08:16 36.4 68 18 192/91 (124) 95 Room Air 10/20/16 08:00 Room Air 10/20/16 00:10 Room Air 10/19/16 23:01 37.1 65 16 175/79 (111) 94 Room Air 10/19/16 20:30 Room Air 10/19/16 16:00 Room Air 10/19/16 15:03 37.0 69 18 195/87 (123) 96 Room Air Lab Results: Results Past 24 Hours Test 10/20/16 05:55 Range/Units White Blood Count 6.13 4.8-10.8 K/uL Red Blood Count 4.45 4.7-6.1 M/uL Hemoglobin 13.9 14.0-18.0 g/dL Hematocrit 42.1 42-52 % Mean Corpuscular Volume 94.6 80-100 fL Mean Corpuscular Hemoglobin 31.2 25-34 pg Mean Corpuscular Hemoglobin Concent 33.0 32-36 g/dl Platelet Count 189 130-400 K/uL Mean Platelet Volume 11.0 7.4-10.4 fL Neutrophils (%) (Auto) 58.3 % Lymphocytes (%) (Auto) 27.7 % Monocytes (%) (Auto) 9.0 % Eosinophils (%) (Auto) 4.2 % Basophils (%) (Auto) 0.5 % Neutrophils # (Auto) 3.57 1.4-6.5 K/uL Lymphocytes # (Auto) 1.70 1.2-3.4 K/uL Monocytes # (Auto) 0.55 0.11-0.59 K/uL Eosinophils # (Auto) 0.26 0-0.5 K/uL Basophils # (Auto) 0.03 0-0.2 K/uL RDW Standard Deviation 47.3 36.4-46.3 fL RDW Coefficient of Variation 13.7 11.5-14.5 % Immature Granulocyte % (Auto) 0.3 % Immature Granulocyte # (Auto) 0.02 0.00-0.02 K/uL C-Reactive Protein 0.64 0-0.29 mg/dl
[2016-10-20] MEDS ORDERED: DXY100 PO (11:53)
--- NOTE | 2016-10-20 11:55 | Discharge Instructions ---
Discharge Instructions Date of Service Oct 20, 2016. Admission Reason for Admission: Cellulitis Discharge Discharge Diagnosis / Problem: Cellulitis Discharge Goals Goal(s): Decrease discomfort, Improve function Activity Recommendations Activity Limitations: resume your previous activity Exercise/Sports Limitations: as tolerated Driving or Machine Use: Please do not drive until cleared by your primary care physician . Instructions / Follow-Up Instructions / Follow-Up Follow up with Primary Care on Oct 24, 2016 at 1:00pm Complete the antibiotic course as prescribed Seek immediate medical attention if your swelling/pain/erythema worsens Elevate leg and apply ice to swelling as advised Discuss with your PCP regarding your blood pressure as you may need medications to control your blood pressure Current Hospital Diet Patient's current hospital diet: AHA Diet (Heart Healthy) Discharge Diet Recommended Diet: AHA Diet (Heart Healthy) Pending Studies Studies pending at discharge: no Medical Emergencies . Who to Call and When: Medical Emergencies: If at any time you feel your situation is an emergency, please call 911 immediately. . Non-Emergent Contact Non-Emergency issues call your: Primary Care Provider Call Non-Emergent contact if: you have a fever, your pain is not controlled, your pain is worsening, your pain is unusual for you, your pain is concerning you, you have any medication questions . . "Provider Documentation" section prepared by Jasbir Padilla. . VTE Core Measure Inpt VTE Proph given/why not?: Enoxaparin (Lovenox)SQ (Patient refused)
--- NOTE | 2016-10-20 11:58 | Discharge Summary ---
Discharge Summary Date of Service Oct 20, 2016. Discharge Summary Admission Date: Oct 15, 2016 at 21:20 Discharge Date: Oct 20, 2016 Discharge Disposition: Home Principal Diagnosis: Cellulitis Procedures: Venous Doppler: 1. No evidence of right lower extremity DVT 2. Persistent right popliteal cyst Leg X ray: 1. No acute fractures 2. Degenerative changes involving the knee with chondrocalcinosis Extremity USD: Complex hypoechoic collection with internal septations involves the distal calf and appears to be intramuscular measuring up to 4.9 x 1.3 x 2.9 cm suggesting hematoma. Abscess could have a similar appearance. Consultations: Orthopedics Pending Studies/Follow-Up: Follow up with Primary Care on Oct 24, 2016 at 1:00pm Complete the antibiotic course as prescribed Seek immediate medical attention if your swelling/pain/erythema worsens Elevate leg and apply ice to swelling as advised Discuss with your PCP regarding your blood pressure as you may need medications to control your blood pressure Medication Reconciliation New Medications: Doxycycline Hyclate (Doxycycline Hyclate) 100 Mg Cap 100 MG PO BID for 5 Days, #10 CAP Discontinued Medications: Cefdinir (Omnicef) 300 Mg Cap 300 MG PO Q12H for 9 Days, #18 CAP Admission Information HPI (per Admitting provider): CHIEF COMPLAINT: Right leg swelling. HISTORY OF PRESENT ILLNESS: Hx obtained from patient and records. Medical history significant for hypertension. Few days ago, patient noted painful achy right leg swelling after trauma while playing with a kid. No chest pain, no shortness of breath. No chest pain, no fever, no chills. Seen at the Emergency Room, given Ceftriaxone for possible cellulitis, discharged on cefdinir. Ultrasound negative for DVT; [place] cyst noted. Patient brought back to Emergency Room for recheck, worsening RLE swelling noted. Given IV ceftriaxone in the Emergency Room. Physical Exam (per Admitting): PHYSICAL EXAMINATION: VITAL SIGNS: Blood pressure was noted to be 170/80 [place] 90 respiratory rate 16, T 37 O2 98 RA GENERAL: Noted to be comfortable, no respiratory distress. SKIN: Normal color. HEENT: [place] palpebral conjunctivae. Dry mucosa. NECK: No JVD. Supple. CHEST: Clear to auscultation. HEART: Regular rate and rhythm. ABDOMEN: Soft. EXTREMITIES: Tender swelling on the right lower leg with some induration. NEUROLOGIC: No gross focality. Hospital Course RLE Cellulitis: Secondary to trauma No signs of sepsis Venous Doppler: No DVT X ray:No acute fractures Continue IV Doxycyclin Day#5 Blood cultures: No growth to date Encourage leg elevation Leg USD:findings suggestive of hematoma appreciate orthopedics input: Discussed today: No plan for for any intervention/ Follow up Hypertension: Elevated, asymptomatic Not on maintenance medications prefers no medications for HTN DVT Px: Lovenox SQ: refusing Code Status: Full code Disposition: Plan to discharge home today Follow up with Primary Care on Oct 24, 2016 at 1:00pm Complete the antibiotic course as prescribed Seek immediate medical attention if your symptoms reoccur or worsen Total time spent on discharge = 32 minutes This includes examination of the patient, discharge planning, medication reconciliation, and communication with other providers. Discharge Instructions Discharge Instructions Date of Service Oct 20, 2016. Admission Reason for Admission: Cellulitis Discharge Discharge Diagnosis / Problem: Cellulitis Discharge Goals Goal(s): Decrease discomfort, Improve function Activity Recommendations Activity Limitations: resume your previous activity Exercise/Sports Limitations: as tolerated Driving or Machine Use: Please do not drive until cleared by your primary care physician . Instructions / Follow-Up Instructions / Follow-Up Follow up with Primary Care on Oct 24, 2016 at 1:00pm Complete the antibiotic course as prescribed Seek immediate medical attention if your swelling/pain/erythema worsens Elevate leg and apply ice to swelling as advised Discuss with your PCP regarding your blood pressure as you may need medications to control your blood pressure Current Hospital Diet Patient's current hospital diet: AHA Diet (Heart Healthy) Discharge Diet Recommended Diet: AHA Diet (Heart Healthy) Pending Studies Studies pending at discharge: no Medical Emergencies . Who to Call and When: Medical Emergencies: If at any time you feel your situation is an emergency, please call 911 immediately. . Non-Emergent Contact Non-Emergency issues call your: Primary Care Provider Call Non-Emergent contact if: you have a fever, your pain is not controlled, your pain is worsening, your pain is unusual for you, your pain is concerning you, you have any medication questions . . "Provider Documentation" section prepared by Jasbir Padilla. . VTE Core Measure Inpt VTE Proph given/why not?: Enoxaparin (Lovenox)SQ (Patient refused)
[2016-10-20 14:07] VITALS: BP 192/91; PULSE 68; TEMP 36.4; O2SAT 95
[2016-10-20] MEDS ORDERED: NURSING VERBAL MED ORDER ONE (18:15)
[2016-10-20] MEDS ORDERED: DOXYCYCLINE HYCLATE 100 MG CAP PO SCH ×2 (18:30→20:00)
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
== END 2016-10-20 16:50 | disposition home or self-care (01) | DRG 603 ==
LOC: C.EDB 18:57 → C.4E 21:20 → ENRESERV 21:33
PROVIDERS: ADMIT Internal Medicine; ATTEND Internal Medicine
DX: L03.115 Cellulitis of right lower limb (principal); Z89.612 Acquired absence of left leg above knee; M71.21 Synovial cyst of popliteal space [Baker], right knee; Z87.891 Personal history of nicotine dependence